=== PATIENT | male | born 1985 | race Caucasian/White ===

== ENCOUNTER 2024-02-29 09:53 | Emergency (ER) | payer BC, SELFPAY ==
[2024-02-29 10:10] VITALS: BP 163/86
--- NOTE | 2024-02-29 10:33 | ED.GENMED ---
History of Present Illness
General
Chief Complaint: Nose Bleed
Time Seen by Provider: 02/29/24 10:32
History of Present Illness
History of Present Illness:
TIME OF INITIAL ENCOUNTER: 10:30 AM
HPI:
Patient presents due to left-sided nosebleed that started earlier this morning. He states the left-sided nosebleed was much more severe than prior nosebleeds that he had in the past. Currently there is no active bleeding. He had recent URI. He
is not on any antiplatelets or anticoagulation. He was told that he has high blood pressure readings�in the past at the primary office it was in the 140s but he wanted to try diet modification first. He has a blood pressure cuff at home and
systolics have been in the 120s.
EXAM:
GENERAL: Well appearing in no distress but he is hypertensive
HEENT: Moist oral mucosa, there is a questionable area of recent bleeding in the anterior nasal septum
NEUROLOGIC: Excellent strength all extremities, no obvious coordination deficits
PSYCHIATRIC: Appropriate mental status, normal insight and judgement
EXTREMITIES: Nontender, no edema, moves all extremities equally
SKIN: No rash, no lesions
NUMBER AND COMPLEXITY OF PROBLEMS ADDRESSED AT THE ENCOUNTER
� Chronic conditions affecting care: High blood pressure
� Acute Exacerbation and/or Progression of Chronic Illness: This is an acute problem
� Differential Diagnosis includes: Anterior nosebleed, coagulopathy, posterior nosebleed, right nasal mucosa, hypertensive urgency
AMOUNT AND/OR COMPLEXITY OF DATA TO BE REVIEWED AND ANALYZED
� I performed an independent evaluation of and my interpretation is:
EKG:
CT:
X-rays:
Laboratory Studies:
Other:
� Review of other/old records: The patient was seen here in 2021 with shingles
� Clinical information was obtained by an independent historian: None needed
� Prescriptions/Medications Considered but not given:
� Further testing considered but not performed:
RISK OF COMPLICATIONS AND/OR MORBIDITY OR MORTALITY OF PATIENT MANAGEMENT
� Social determinants of health affecting care: Lives at home with family
� Discussion with other providers:
� Escalation of care including admission/observation vs risk of discharge considered: The patient has no active bleeding, there is a questionable area of recent bleeding from the anterior nasal septum. We talked about the
importance of control.
ANY OTHER UPDATES:
Past History
Past History
ED Past Medical History: None
ED Past Surgical History: Orthopedic
Social History
Tobacco: Non-smoker
Alcohol: Occasional
Drug: None
Personal:
Living: with family
Phy Exam
Physical Exam
Physical Exam:
See HPI
Course
Vital Signs
Initial and Last Documented VS:
Initial Vital Signs
Temp Pulse Resp BP Pulse Ox
98.1 F 83 16 163/86 98
02/29/24 10:10 02/29/24 10:10 02/29/24 10:10 02/29/24 10:10 02/29/24 10:10
Last Documented Vital Signs
Temp Pulse Resp BP Pulse Ox
98.1 F 83 16 163/86 98
02/29/24 10:10 02/29/24 10:10 02/29/24 10:10 02/29/24 10:10 02/29/24 10:10
*Critical Care Note
Total Time (30-74mins, 75-104mins- exclusive of procedures): Not Applicable
ED Attending Note
-
Portions of this chart may have been created with voice recognition software.� Occasional wrong word or��sound alike� substitutions may have occurred due to the inherent limitations of voice recognition software.
Discharge Plan
Departure
Patient Disposition: Home (Routine Discharge)
Date of Disposition: 02/29/24
Time of Disposition: 10:53
Patient with high blood pressure during this ER visit?: Yes
Discharge Problem:
Epistaxis
Instructions: Nosebleeds (DC), BLOOD PRESSURE
Prescriptions:
No Action
oxycodone-acetaminophen [Percocet] 5-325 mg Tablet
1 tab PO Q4HPRN PRN (Reason: pain) Qty: 10 0RF
Activity Restrictions/Additional Instructions:
If bleeding recurs, pinch the nostrils below the nasal bone. There is no active bleeding currently. Your blood pressure has been elevated is very important to have good blood pressure control�follow-up your primary care doctor. I recommend using
saline sprays to help keep the mucosa of the nose moist.
Interventions
Interventions:
*Risk Screen - Suicide Last Done: 02/29/24 10:10
*General Assessment Last Done: 02/29/24 10:33
*Neglect/Abuse Screening Last Done: 02/29/24 10:10
ED- Fall Risk Assessment Last Done: 02/29/24 10:33
*ED COVID-19 Vaccine History Last Done: 02/29/24 10:33
ED-EENT Assessment Last Done: 02/29/24 10:33
Discharge Date and Time
Print Language: AMHARIC
[2024-02-29 11:18] VITALS: BP 153/82
== END 2024-02-29 11:20 | disposition home or self-care (01) ==
LOC: EMR 09:53
PROVIDERS: EMERGENCY PHYSICIAN Emergency Medicine; FAMILY PHYSICIAN Family Medicine
DX: R04.0 Epistaxis (principal); R03.0 Elevated blood-pressure reading, without diagnosis of hypertension
CPT/HCPCS: 99282